=== PATIENT | male | born 1985 | race Caucasian/White ===

== ENCOUNTER 2016-09-25 02:50 | Emergency (ER) | payer SELFPAY ==
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
--- NOTE | 2016-09-28 00:07 | ED MED RECONCILIATION SUMMARY ---
Patient: ASCENCION BOLIVAR Medication Reconciliation Report [facility] VisitID: [id number] [address] [place] [address] 31y, M Registration Date/Time: 09/25/2016 Weight: 65.7 kg Height/Length: 70 in. BMI: 20.8 ALLERGIES: No Known Drug Allergy The patient's Home Medications are listed below: NONE. The source(s) of the original Home Medication information: patient The following Medications were given to the patient in the Emergency Department: None. The following Medications were prescribed to the patient: Acetaminophen (available over the counter): take according to label instructions. -- Ronnell Rush MD
--- NOTE | 2016-09-28 00:07 | ED MAR SUMMARY ---
..... Medication Administration Record [facility] [address] [place], [place] [id number] Patient: ASCENCION BOLIVAR Visit ID: [id number] 31y, M Weight: 65.7 kg Height/Length: 70 in BMI: 20.8 ALLERGIES: No Known Drug Allergy
--- NOTE | 2016-09-28 00:07 | ED MED RECONCILIATION SUMMARY ---
Patient: ASCENCION BOLIVAR Medication Reconciliation Report VisitID: [id number] [address] [place] [address] 31y, M Registration Date/Time: 09/25/2016 Weight: 65.7 kg Height/Length: 70 in. BMI: 20.8 ALLERGIES: No Known Drug Allergy The patient's Home Medications are listed below: NONE. The source(s) of the original Home Medication information: patient The following Medications were given to the patient in the Emergency Department: None. The following Medications were prescribed to the patient: Acetaminophen (available over the counter): take according to label instructions. -- Ronnell Rush MD
--- NOTE | 2016-09-28 00:07 | ED MAR SUMMARY ---
..... Medication Administration Record [facility] [address] [place], [place] [id number] Patient: ASCENCION BOLIVAR Visit ID: [id number] 31y, M Weight: 65.7 kg Height/Length: 70 in BMI: 20.8 ALLERGIES: No Known Drug Allergy
== END 2016-09-25 03:35 | disposition home or self-care (01) ==
LOC: ED SRH 02:50
DX: S01.01XA Laceration without foreign body of scalp, initial encounter (principal); X99.0XXA Assault by sharp glass, initial encounter; Y93.9 Activity, unspecified; Y92.410 Unspecified street and highway as the place of occurrence of the external cause; Y99.9 Unspecified external cause status; F17.210 Nicotine dependence, cigarettes, uncomplicated
CPT/HCPCS: 81663